=== PATIENT | female | born 1980 | race Two or more races ===

== ENCOUNTER 2019-09-28 14:51 | Emergency (ER) | payer MEDICAID ==
[~2019-09-28] VITALS: Ht 152.4 cm; Wt 71.1 kg
[~2019-09-28 14:51] MED LIST: ACET325T26 PO; AMOX1TAB64 PO; DOCU100C33 PO; FERR324T5 PO; IBUP-1840 PO; MEDR10TA PO; POTA20TA6 PO; birth control
--- NOTE | 2019-09-28 15:20 | NUR ---
ASSUMED CARE OF PATIENT. PATIENT REPORTS SHE IS HAVING VAGINAL AND RECTAL BLEEDING. PT WAS SUPPOSED TO HAVE A HYSTERECTOMY BUT IT HAS BEEN DELYAED. PT ALSO REPORTS SHE HAS BEEN DRINKING TODAY. PT SEEN BY DR MONTENEGRO. FAMILY AT BEDSIDE. LAB IN ROOM. CALL LIGHT IN PLACE. BLANKET GIVEN. WILL CONTINUE TO MONITOR.
[2019-09-28 15:36] LABS: BASOPHILS # (AUTO) 0.02 x10^3/uL (0-0.1); BASOPHILS % (AUTO) 0 % (0-1); EOSINOPHILS # (AUTO) 0.03 x10^3/uL (0-0.4); EOSINOPHILS % (AUTO) 0 % (1-7); LYMPHOCYTES # (AUTO) 2.47 x10^3/uL (1-3.4); LYMPHOCYTES % (AUTO) 36 % (22-44); MD NO; MEAN CORPUSCULAR HEMOGLOBIN 22.1 pg (27.0-34.8); MEAN CORPUSCULAR HGB CONC 31.5 g/dL (32.4-35.8); MEAN CORPUSCULAR VOLUME 70.1 fL (80-100); MONOCYTES # (AUTO) 0.54 x10^3/uL (0.2-0.8); MONOCYTES % (AUTO) 8 % (2-9); NEUTROPHILS # (AUTO) 3.76 x10^3/uL (1.8-6.8); NEUTROPHILS % (AUTO) 55 % (42-75); PLATELET COUNT 354 x10^3/uL (130-400); RED BLOOD COUNT 4.33 x10^6/uL (3.82-5.3)
--- NOTE | 2019-09-28 16:20 | NUR ---
PELVIC SET UP.
[2019-09-28] MEDS ORDERED: ASPI81TA50 PO (16:29)
[2019-09-28] MEDS ORDERED: ASPI-515 PO (16:29)
--- NOTE | 2019-09-28 16:37 | NUR ---
PELVIC DONE BY DR MONTENEGRO. PT TO BE DISCHARGED. VS [facility]URRAY. BLOOD BANK AWARE.
== END 2019-09-28 16:46 | disposition home or self-care (01) ==
LOC: MERGE 15:23 → ED 15:23 → UNMERGE 15:23 → ED 16:46
DX: K64.4 Residual hemorrhoidal skin tags (principal); D53.9 Nutritional anemia, unspecified; K62.5 Hemorrhage of anus and rectum
CPT/HCPCS: 36415; 84703; 85025; 86850; 86900; 99283